=== PATIENT | male | born 1960 | race African-American/Black ===

== ENCOUNTER 2024-11-07 19:26 | Emergency (ER) | payer MEDICAID ==
[~2024-11-07] VITALS: Ht 180.3 cm; Wt 50.0 kg
[2024-11-07 19:52] VITALS: O2SAT 98
[2024-11-07] MEDS ORDERED: HYDROCODONE/ACETAMINOPHEN 5/325MG TABLET PO ONE (23:15)
[2024-11-07] MEDS ORDERED: LIDOCAINE 5% PATCH TOP SCH (23:15)
[2024-11-07] MEDS: CYCLOBENZAPRINE 10MG TABLET PO ONE (23:15)
[2024-11-08] MEDS ORDERED: NAPR-1176 MT (03:30)
[2024-11-08] MEDS ORDERED: LIDO700A15 TP (03:30)
[2024-11-08] MEDS: LIDOCAINE 5% PATCH TOP NR (04:21)
[2024-11-08] MEDS: HYDROCODONE/ACETAMINOPHEN 5/325MG TABLET PO NR (04:21)
[2024-11-08 04:22] VITALS: TEMP 37.11408; O2SAT 98
[2024-11-08] MEDS: CYCLOBENZAPRINE 10MG TABLET PO NR (04:23)
[2024-11-08 04:24] VITALS: BP 136/81; PULSE 81; RESP 20
== END 2024-11-08 04:25 | disposition home or self-care (01) ==
LOC: ER 19:26
DX: G89.29 Other chronic pain (principal); M54.9 Dorsalgia, unspecified; Z59.71 Insufficient health insurance coverage; Z79.1 Long term (current) use of non-steroidal anti-inflammatories (NSAID)
CPT/HCPCS: 99284